=== PATIENT | male | born 1975 | race Caucasian/White ===

== ENCOUNTER 2018-05-07 15:56 | Emergency (ER) | payer SELFPAY ==
[~2018-05-07] VITALS: Ht 170.2 cm; Wt 97.9 kg
[2018-05-07 16:52] VITALS: BP 139/84; PULSE 117; RESP 20; Ht 170.2 cm; Wt 97.9 kg
[2018-05-07] MEDS ORDERED: KETOROLAC 60 MG INJ IM STA (18:23)
[2018-05-07] MEDS ORDERED: ONDANSETRON (ODT) 4 MG TAB ODT STA (18:23)
[2018-05-07] MEDS ORDERED: ACETAMINOPHEN 325 MG TAB PO ONE (18:30)
[2018-05-07] MEDS ORDERED: IBUP-1542 PO (18:38)
[2018-05-07] MEDS ORDERED: OSEL75CA23 PO (18:38)
[2018-05-07] MEDS ORDERED: D-ME473S2 PO (18:38)
--- NOTE | 2018-05-07 18:47 | ERD ---
ER Documentation Chief Complaint Chief Complaint cough, fever, since yesterday; tylenol at 2 pm HPI This 42-year-old male presents cough fever and body aches since yesterday. He has nausea but no vomiting. Denies abdominal pain, diarrhea, urinary complaints, neck stiffness, rashes. ROS All systems reviewed and are negative except as per history of present illness. Medications Home Meds Active Scripts Ibuprofen* (Motrin*) 600 Mg Tab, 600 MG PO Q6, #15 TAB Prov:DARREL BRUCE MD 05/07/18 Dextromethorphan Hb-Promethazine Hcl* (Promethazine DM* Syrup) 473 Ml Syrup, 5 ML PO Q6 PRN for COUGH for 5 Days, ML Prov:DARREL BRUCE MD 05/07/18 Oseltamivir Phosphate* (Tamiflu*) 75 Mg Capsule, 75 MG PO BID for 5 Days, CAP Prov:DARREL BRUCE MD 05/07/18 Allergies Allergies: Coded Allergies: No Known Allergy (Unverified , 05/07/18) PMhx/Soc Medical and Surgical Hx: pt denies Medical Hx, pt denies Surgical Hx Hx Alcohol Use: No Hx Substance Use: No Hx Tobacco Use: No FmHx Family History: No diabetes, No coronary disease, No other Physical Exam Vitals Vital Signs Date Temp Pulse Resp B/P (MAP) Pulse Ox O2 O2 Flow FiO2 Time Delivery Rate 05/07/18 97.9 117 20 139/84 97 16:52 (102) Physical Exam Const: No acute distress Head: Atraumatic Eyes: Normal Conjunctiva ENT: Normal External Ears, Nose and Mouth. TMs and oropharynx normal. Neck: Full range of motion. No meningismus. Resp: Clear to auscultation bilaterally .dry cough without rales, wheezing or retractions. Cardio: Regular rate and rhythm, no murmurs Abd: Soft, non tender, non distended. Normal bowel sounds Skin: No petechiae or rashes Back: No midline or flank tenderness Ext: No cyanosis, or edema Neur: Awake and alert Psych: Normal Mood and Affect Results 24 hrs Current Medications Medications Dose Sig/Raphael Start Time Status Last (Trade) Ordered Route PRN Stop Time Admin Dose Reason Admin 650 mg ONCE ONCE 05/07/18 DC 05/07/18 Acetaminophen PO 18:30 18:36 (Tylenol 05/07/18 18:31 Tab) Ondansetron 8 mg ONCE STAT 05/07/18 DC 05/07/18 HCl (Zofran ODT 18:23 18:35 Odt) 05/07/18 18:24 Ketorolac 60 mg ONCE STAT 05/07/18 DC 05/07/18 Tromethamine IM 18:23 18:36 (Toradol) 05/07/18 18:24 Procedures/MDM Patient presents with fever and URI symptoms body aches consistent with a flu type illness. He has no evidence of hypoxemia, rest or distress, signs of pneumonia, abdominal pain. Likely has viral URI possibly influenza. We will treat empirically with Tamiflu given the short duration, ibuprofen, promethazine DM, fluids, rest, primary care follow-up and return precautions. The patient was stable with no new complaints during the ER course. Clinically, there is no current evidence to suggest meningitis, sepsis, acute abdomen, pneumonia, stroke, acute coronary syndrome, pulmonary embolism, aortic dissection or any other emergent condition appearing to require further evaluation or hospitalization. Patient counseled regarding my diagnostic impression and care plan. Prior to discharge all questions answered. Pt agrees with treatment plan and understands strict return precautions. Pt is instructed to follow up with primary care provider within 24-48 hours. Precautionary instructions provided including instructions to return to the ER if not improving or for any worsening or changing symptoms or concerns. Departure Diagnosis: Primary Impression: Flu-like symptoms Additional Impression: Cough Condition: Stable Patient Instructions: Fever Control (Adult), Influenza (Adult) Referrals: NO PRIMARY,CARE PHYSICIAN (PCP) Additional Instructions: Likely influenza or viral illness may last 3-5 days. Continue Tylenol every 4 hours, fluids, rest, and follow-up with primary doctor return to ER for new or worsening symptoms. DARREL BRUCE MD May 07, 2018 18:47
== END 2018-05-07 19:16 | disposition home or self-care (01) ==
LOC: FTE 15:56
DX: R05 Cough (principal); R50.9 Fever, unspecified
CPT/HCPCS: 96372; 99284; J1885